=== PATIENT | female | born 1990 | race Caucasian/White ===

== ENCOUNTER 2020-06-04 11:11 | Emergency (ER) | payer MEDICAID ==
[2020-06-04] MEDS ORDERED: Dexamethasone 10 MG/ML VIAL ONE (11:42)
[2020-06-04] MEDS ORDERED: Ondansetron PF 4 MG/2 ML Vial ONE (11:42)
[2020-06-04 11:46] LABS: Hemoglobin 11.4 g/dL (12.0-16.0); Mean Corpuscular HGB CONC 31.3 g/dL (32.0-36.0); Mean Corpuscular Hemoglobin 22.3 pg (27.0-31.0); Mean Corpuscular Volume 71.3 fL (78.0-98.0); Platelet Count 230 thou/uL (130-400); RBC Distribution Width 14.1 % (11.5-14.5); White Blood Cell (WBC) Count 5.3 thou/uL (4.8-10.8)
[2020-06-04 12:01] LABS: ALT (SGPT) 89 U/L (8-55); AST (SGOT) 135 U/L (5-34); Albumin 3.6 g/dL (3.5-5.0); Alkaline Phosphatase 47 U/L (40-110); Anion Gap 14 mmol/L (10-20); BUN (Urea Nitrogen) 4 mg/dL (7.0-18.7); Bilirubin, Total 0.4 mg/dL (0.2-1.2); Calc. Creatinine Clearance 0 mL/min (70-130); Calcium 7.8 mg/dL (7.8-10.44); Carbon Dioxide 25 mmol/L (22-29); Chloride 102 mmol/L (98-107); Globulin 3.5 g/dL (2.4-3.5); Glucose 89 mg/dL (70-105); Potassium 3.7 mmol/L (3.5-5.1); Protein, Total 7.1 g/dL (6.0-8.3); Sodium 137 mmol/L (136-145)
[2020-06-04 12:09] LABS: #Lymphocytes 1.2 thou/uL (1.20-3.40); #Monocytes 0.3 thou/uL (0.11-0.59); #Neutrophils 3.9 thou/uL (1.40-6.50); %Basophils 0.2 % (0.0-1.0); %Lymphocytes 21.8 % (21.0-51.0); %Monocytes 5.3 % (0.0-10.0); %Neutrophils 72.6 % (42.0-75.0); Anisocytosis SLIGHT = 6-15 cells (100X) (0-5/hpf); MDiff Complete? YES; Microcytosis SLIGHT = 6-15 cells (100X) (0-5/hpf); Platelet Morphology Comment Appears Adequate
[2020-06-04 12:27] LABS: Bilirubin Negative (Negative); Blood, Urine Small (Negative); Clarity Slightly Cloudy (Clear); Glucose, Urine (Dipstick) Negative (Negative); Ketone, Urine Negative (Negative); Leukocyte Negative (Negative); Nitrite Negative (Negative); Protein, Urine (Dipstick) Negative (Neg-Trace)
[2020-06-04] MEDS ORDERED: Acetaminophen 500 MG TAB ONE (12:37)
[2020-06-04] MEDS ORDERED: Levofloxacin 500 mg/D5W 100 ml Premix Bag ONE (12:37)
[2020-06-04 12:42] LABS: RBC/HPF 0-3 HPF (0-3)
[2020-06-04 12:43] LABS: Bacteria/HPF Rare-Few HPF (None Seen); Squamous Epithelial 0-3 HPF (0-3); WBC/HPF 0-3 HPF (0-3)
[2020-06-04 13:26] LABS: Pregnancy Test - Urine (BHCG) Negative (Negative)
[2020-06-04 13:27] LABS: Pregu Control Background? CLEAR/WHITE (CLR/WHITE); Pregu Control Bar Appear? YES (CONTROL BAR)
[2020-06-04 13:30] LABS: THC/Cannabinoid Screen Not Detected (NotDetected)
[2020-06-04 13:31] LABS: Amphetamine Not Detected (NotDetected); Barbiturates Screen Not Detected (NotDetected); Benzodiazepine Screen Not Detected (NotDetected); Cocaine Metabolite Screen Not Detected (NotDetected); Medtox Control Line Valid? VALID (VALID); Methadone Not Detected (NotDetected); Methamphetamine Not Detected (NotDetected); Opiate Screen Not Detected (NotDetected); Oxycodone Screen Not Detected (NotDetected); Phencyclidine (PCP) Not Detected (NotDetected); Tricyclic Screen Not Detected (NotDetected)
--- NOTE | 2020-06-04 15:15 | RAD ---
PORTABLE CHEST: 06/04/20 An AP portable film at 1144 is presented with no prior films available for comparison. The heart is normal in size for AP projection and body habitus. The vasculature is somewhat prominent , but at least some of this is probably due to interstitial prominence. Some ground glass areas parti cularly in the lower lobes are more suggestive with a pattern being secondary to the known COVID dise ase than pulmonary edema. There are no large effusions. The mediastinum showed no widening or shift. IMPRESSION: Diffuse interstitial prominence with some areas slightly denser in the lower halves of the lungs. Fin dings connected to COVID seem most likely. POS: HOME
== END 2020-06-04 13:51 | disposition short-term general hospital (02) ==
LOC: BURERS 11:11
DX: U07.1 COVID-19 (principal); J12.82 Pneumonia due to coronavirus disease 2019; I10 Essential (primary) hypertension; J45.909 Unspecified asthma, uncomplicated; Z87.891 Personal history of nicotine dependence
CPT/HCPCS: 36415; 71045; 80053; 80306; 81003; 81015; 81025; 83605; 83880; 84484; 85025; 87040; 93005; 94760; 96374; 96375; J1100; J1956; J2405

== ENCOUNTER 2020-10-15 20:43 | Emergency (ER) | payer OTHER ==
[2020-10-15] MEDS ORDERED: Sulfameth/Trimethoprim DS 800-160mg TAB ONE (21:37)
== END 2020-10-15 21:40 | disposition home or self-care (01) ==
LOC: BURERS 20:43
DX: L03.113 Cellulitis of right upper limb (principal); I10 Essential (primary) hypertension; J45.909 Unspecified asthma, uncomplicated; Z87.891 Personal history of nicotine dependence
CPT/HCPCS: 99283